=== PATIENT | male | born 1990 | race Caucasian/White ===

== ENCOUNTER 2019-01-08 02:13 | Emergency (ER) | payer SELFPAY ==
[~2019-01-08] VITALS: Ht 182.9 cm; Wt 91.0 kg
[2019-01-08] MEDS ORDERED: HALOPERIDOL LACTATE 5MG/ML VIAL IM ONE (02:45)
[2019-01-08 03:52] LABS: BASOPHILS % 0.4 % (0.0-2.0); EOSINOPHILS % 0.5 % (0.0-5.0); HEMATOCRIT. 41.3 % (42.0-52.0); HEMOGLOBIN. 14.8 g/dL (14.0-18.0); LYMPHOCYTES % 14.7 % (20.0-50.0); MEAN CORPUSCULAR VOLUME 89.3 fL (80.0-94.0); MEAN PLATELET VOLUME 10.3 fl (7.4-10.4); MONOCYTES % 9.3 % (2.0-8.0); NEUTROPHILS % 75.1 % (40.0-76.0); PLATELET 235 x1000/uL (130-400); RED BLOOD CELL COUNT 4.63 mill/uL (4.7-6.1); RED CELL DISTRIBUTION WIDTH 12.4 % (11.6-14.6)
[2019-01-08 03:56] LABS: CLARITY URINE CLEAR (CLEAR); COLOR URINE DARK YELLOW (YELLOW); KETONES URINE TRACE (NEGATIVE); LEUKOCYTE ESTERASE URINE NEGATIVE (NEGATIVE); NITRITE URINE NEGATIVE (NEGATIVE); OCCULT BLOOD URINE NEGATIVE (NEGATIVE); PH URINE 5.5 (4.5-8.0); PROTEIN URINE TRACE (NEGATIVE); SPECIFIC GRAVITY URINE 1.019 (1.005-1.030)
[2019-01-08 03:57] LABS: CHLORIDE 105 mEq/L (98-107)
[2019-01-08 04:00] LABS: ETHANOL BLOOD < 10 mg/dL
[2019-01-08 04:04] LABS: *AMPHETAMINES SCREEN URINE NEGATIVE (NEGATIVE); *BARBITURATES SCREEN URINE NEGATIVE (NEGATIVE); *BENZODIAZEPINES SCREEN URINE PRESUMTIVE POSITIVE (NEGATIVE); *COCAINE SCREEN URINE NEGATIVE (NEGATIVE); METHADONE URINE SCREEN NEGATIVE (NEGATIVE)
[2019-01-08 04:05] LABS: CANNABINOID URINE SCREEN PRESUMTIVE POSITIVE (NEGATIVE); OPIATES URINE SCREEN NEGATIVE (NEGATIVE); PHENCYCLIDINE URINE SCREEN NEGATIVE (NEGATIVE)
[2019-01-08 19:56] VITALS: BP 113/72
== END 2019-01-08 20:15 | disposition home or self-care (01) ==
LOC: ER 02:13 → EDBD 02:13 → ER 20:15
DX: F23 Brief psychotic disorder (principal); R45.1 Restlessness and agitation; I10 Essential (primary) hypertension; R45.851 Suicidal ideations; Z59.0 Homelessness
CPT/HCPCS: 36415; 80305; 80320; 81003; 82962; 99284; G0480